=== PATIENT | male | born 1940 | race Hispanic/Latino ===

== ENCOUNTER 2020-12-13 07:07 | Day surgery (SDC) | payer MEDICARE ==
[2020-12-07 13:40] LABS: APPEARANCE,URINE Cloudy (CLEAR); BILIRUBIN,URINE Negative (NEGATIVE); COLOR,URINE Yellow (YELLOW); GLUCOSE, URINE (UA) Negative (NEGATIVE); KETONES,URINE Negative (NEGATIVE); LEUKOCYTE ESTERASE ,URINE Small (NEGATIVE); NITRATE,URINE Negative (NEGATIVE); OCCULT BLOOD,URINE Negative (NEGATIVE); PROTEIN,URINE Negative (NEGATIVE)
[2020-12-07 13:51] LABS: RBC,URINE 0-1 /HPF (0-1)
[2020-12-07 13:52] LABS: BASOPHILS % (AUTO) 0.7 % (0.0-5.0); HEMATOCRIT 44.8 % (42-54); LYMPHOCYTES % (AUTO) 25.1 % (21.0-51.0); MEAN CORPUSCULAR HEMOGLOBIN 31.3 pg (27.0-33.0); MEAN CORPUSCULAR HGB CONC 33.5 g/dL (32.0-36.0); MEAN CORPUSCULAR VOLUME 93.5 fL (79-99); MONOCYTES % (AUTO) 9.1 % (3.0-13.0); NEUTROPHILS % (AUTO) 56.8 % (40.0-77.0); PLATELET COUNT (AUTO) 128 K/uL (130-400); RED BLOOD CELL COUNT(AUTO) 4.79 MIL/uL (4.50-6.20); RED CELL DISTRIBUTION WIDTH 12.4 % (11.0-15.5); WHITE BLOOD COUNT (AUTO) 6.9 K/uL (4.8-10.8)
[2020-12-07 13:52] LABS: AMORPHOUS SEDIMENT,UR Moderate /LPF (None Seen); BACTERIA,URINE Rare /HPF (None Seen); SQUAMOUS EPITHELIAL CELL,UR 0-2 /HPF (0-2)
[2020-12-07 14:00] LABS: INR 1.07 (0.85-1.15); PROTHROMBIN TIME 11.6 SEC (9.6-11.6)
[2020-12-07 14:01] LABS: CREATININE 0.7 mg/dL (0.5-1.5); PARTIAL THROMBOPLASTIN TIME 27.9 SEC (26.3-35.5); POTASSIUM 3.9 mmol/L (3.5-5.1)
[2020-12-12 11:34] VITALS: BP 141/80
[2020-12-13] VITALS (18 sets, daily range): BP systolic 130–161; BP diastolic 72–92
[~2020-12-13] VITALS: Ht 157.5 cm; Wt 74.5 kg
[~2020-12-13 07:07] MED LIST: ATOR10 PO; EZET10TA48 PO; MAGN400C PO; TAMS-1 PO
[2020-12-13] MEDS ORDERED: GENTAMICIN 80 MG/NS 100 ML PB 100 ML IV PRN (08:00)
[2020-12-13] MEDS ORDERED: LACTATED RINGERS 1000ML 1,000 ML IV ONE (08:22)
[2020-12-13] MEDS: CEFTRIAXONE 1G VIAL IVP ONE ×2 (08:30→09:50)
[2020-12-13] MEDS ORDERED: PROPOFOL 10 MG/ML 20ML VIAL IV ONE (09:44)
[2020-12-13] MEDS ORDERED: LIDOCAINE PF 100MG/5ML (2%) SYRINGE 5ML ONE (09:44)
[2020-12-13] MEDS ORDERED: EPHEDRINE SULFATE 50 MG/ML AMPULE ONE (10:01)
[2020-12-13] MEDS ORDERED: FENTANYL CITRATE PF 50 MCG/1 ML 2ML VIAL ONE ×2 (10:10→10:46)
[2020-12-13] MEDS ORDERED: GLYCOPYRROLATE 1 MG/5 ML SYRINGE ONE (10:40)
[2020-12-13] MEDS ORDERED: ONDANSETRON 4MG INJ ONE (10:52)
[2020-12-13] MEDS ORDERED: OPIUM/BELLADONNA ALKALOIDS 1 EACH SUPP.RECT RC ONE (12:29)
[2020-12-13] MEDS ORDERED: OPIUM/BELLADONNA ALKALOIDS 1 EACH SUPP.RECT RC PRN (13:00)
[2020-12-13] MEDS ORDERED: HYDROCODONE/ACETAMINOPHEN 5/325 MG TAB PO PRN (13:00)
[2020-12-13] MEDS ORDERED: BACITRACIN 28.4 GM OINT TP SCH (21:00)
== END 2020-12-13 13:05 | disposition home or self-care (01) ==
LOC: DAH 07:07
PROVIDERS: ATTEND Urology
DX: N40.1 Benign prostatic hyperplasia with lower urinary tract symptoms (principal); Z20.822 Contact with and (suspected) exposure to COVID-19; R35.0 Frequency of micturition; R35.1 Nocturia; N32.89 Other specified disorders of bladder; I10 Essential (primary) hypertension; K21.9 Gastro-esophageal reflux disease without esophagitis; E78.5 Hyperlipidemia, unspecified; M81.0 Age-related osteoporosis without current pathological fracture; Z79.899 Other long term (current) drug therapy
CPT/HCPCS: 36415; 52648; 71045; 80048; 81001; 85025; 85610; 85730; 87088; 87635; 93005; A4215 ×2; A4216; A4221 ×2; A4222 ×2; A4223 ×4; A4335; A4354; A4358 ×2; A4600; A4606; A4663 ×2; A4930; A5113; A6260; A6402; C1769; C9803; J0696; J1580; J2001; J2405; J2704; J3010 ×2; J3490 ×2; J7030; J7120 ×2